=== PATIENT | male | born 1955 | race Caucasian/White ===

== ENCOUNTER 2021-10-15 14:51 | Emergency (ER) | payer OTHER ==
[~2021-10-15 14:51] MED LIST: ALTACE5 MG PO; OXYCODONE-ACET1 EAC1 PO; XARELTO10 MG PO
== END 2021-10-15 16:05 | disposition home or self-care (01) ==
LOC: FER 14:51
DX: S86.012A Strain of left Achilles tendon, initial encounter (principal); S96.912A Strain of unspecified muscle and tendon at ankle and foot level, left foot, initial encounter; I10 Essential (primary) hypertension; Z88.5 Allergy status to narcotic agent; X50.1XXA Overexertion from prolonged static or awkward postures, initial encounter; Y93.89 Activity, other specified; Y92.009 Unspecified place in unspecified non-institutional (private) residence as the place of occurrence of the external cause
CPT/HCPCS: 73610